=== PATIENT | male | born 1945 | race Caucasian/White ===

== ENCOUNTER 2021-08-14 06:58 | Emergency (ER) | payer MEDICARE ==
[~2021-08-14] VITALS: Ht 180.3 cm; Wt 97.5 kg
[2021-08-14] MEDS ORDERED: MORPHINE 4 MG SYG IM SCH (08:30)
[2021-08-14 09:24] VITALS: BP 133/79
[2021-08-14] MEDS ORDERED: TETANUS/DIPHTHERIA TOXOID [ADULT] 0.5 ML VIAL IM SCH (09:30)
== END 2021-08-14 09:28 | disposition home or self-care (01) ==
LOC: EDH 06:58
DX: S52.102A Unspecified fracture of upper end of left radius, initial encounter for closed fracture (principal); S00.31XA Abrasion of nose, initial encounter; W01.0XXA Fall on same level from slipping, tripping and stumbling without subsequent striking against object, initial encounter; Y93.89 Activity, other specified; Y92.89 Other specified places as the place of occurrence of the external cause; Y99.8 Other external cause status
CPT/HCPCS: 29105; 73080; 73090; 96372; 99284; J2270

== ENCOUNTER → 2023-11-19 | Outpatient (CLI) | payer MEDICARE ==
[~2023-11-19] VITALS: Ht 175.3 cm; Wt 99.0 kg
[~2023-11-19] MED LIST: LOSA25TA41 PO
[2023-11-19 12:47] LABS: BASOPHILS # (AUTO) 0.07 K/uL (0.00-0.20); BASOPHILS % (AUTO) 0.7 % (0.0-5.0); EOSINOPHILS # (AUTO) 0.24 K/uL (0.00-0.70); EOSINOPHILS % (AUTO) 2.6 % (0.0-8.0); HEMATOCRIT 54.1 % (42-54); IMMATURE GRANULOCYTE ABSOLUTE 0.04 K/uL (0-1); LYMPHOCYTES # (AUTO) 1.9 K/uL (1.0-4.8); MEAN CORPUSCULAR HEMOGLOBIN 32.3 pg (27.0-33.0); MEAN CORPUSCULAR HGB CONC 33.8 g/dL (32.0-36.0); MEAN CORPUSCULAR VOLUME 95.6 fL (79-99); MONOCYTES # (AUTO) 0.8 K/uL (0.1-1.0); NEUTROPHILS # (AUTO) 6.4 K/uL (1.8-7.7); NEUTROPHILS % (AUTO) 68.3 % (40.0-77.0); PLATELET COUNT (AUTO) 221 K/uL (130-400); RED BLOOD CELL COUNT(AUTO) 5.66 MIL/uL (4.50-6.20); RED CELL DISTRIBUTION WIDTH 13.7 % (11.0-15.5); WHITE BLOOD COUNT (AUTO) 9.4 K/uL (4.8-10.8)
[2023-11-19 12:56] VITALS: BP 151/97; PULSE 68; RESP 14
[2023-11-19 12:56] LABS: CREATININE 1.1 mg/dL (0.5-1.5); POTASSIUM 4.4 mmol/L (3.5-5.1)
[2023-11-19 13:14] LABS: INR 1.93 (0.85-1.15); PROTHROMBIN TIME 21.4 SEC (9.6-11.6)
[2023-11-19 13:16] LABS: PARTIAL THROMBOPLASTIN TIME 28.4 SEC (26.3-35.5)
== END | disposition home or self-care (01) ==
LOC: DAH 10:00 → EDSTATUS 11-23 08:00
PROVIDERS: ATTEND Surgery
DX: Z01.818 Encounter for other preprocedural examination (principal); I45.2 Bifascicular block; K42.9 Umbilical hernia without obstruction or gangrene
CPT/HCPCS: 80048; 85025; 85610; 85730; 36415; 93005; A6260